=== PATIENT | female | born 1955 | race African-American/Black ===

== ENCOUNTER 2019-06-27 18:17 | Inpatient (IN) ==
[2019-06-27 19:11] LABS: Basophils % 0.3 % (0.0-0.8); Hematocrit 41.5 VOL% (35.7-47.0); Hemoglobin 13.8 GM/DL (12.0-16.0); Immature Granulocytes % 0.4 %; Immature Granulocytes Absolute 0.03 #; Lymphocytes # 1.3 10*3/uL (1.4-4.0); Lymphocytes % 17.9 % (21.3-54.2); Mean Corpuscular HGB Conc 33.3 GM/DL (32-36); Mean Corpuscular Volume 86.6 FL (87-102); Mean Platelet Volume 11.8 FL (9.6-12.0); Monocytes % 7.3 % (1.7-12.7); Neutrophils % 74.1 % (38.7-73.9); Platelet Count 166 T/CUMM (130-400); Red Blood Count 4.79 MC/CUMM (3.8-5.5); Red Cell Distribution Width 12.1 % (9.3-17.3); White Blood Count 7.4 T/CUMM (4-12)
[2019-06-27 19:35] LABS: Albumin 3.4 G/DL (3.4-5.0); Bilirubin,Total 0.8 MG/DL (0.2-1.0); Calcium 9.2 MG/DL (8.5-10.1); Osmolality,Calculated 269.9 MOS/KG (273-304); Total Protein 8.4 G/DL (6.4-8.3)
[2019-06-27] MEDS ORDERED: DEXTROSE 50% 25 GM/50 ML VIAL IV PRN (21:19)
[2019-06-27] MEDS ORDERED: GLUCAGON 1 MG VIAL IM PRN (21:19)
[2019-06-27] MEDS ORDERED: DEXTROSE 50% 25 GM/50 ML SYRINGE IV PRN (21:19)
[2019-06-27] MEDS ORDERED: AZITHROMYCIN INJ 500 MG in SODIUM CHLORIDE 0.9% 250 ML IV SCH (23:00)
[2019-06-27] MEDS: ENOXAPARIN 40 MG/0.4 ML SYRINGE SUBCUT SCH (23:50)
[2019-06-27] MEDS: SODIUM CHLORIDE 0.9% 1,000 ML IV SCH (23:50)
[2019-06-27] MEDS: HYDROXYCHLOROQUINE 200 MG TABLET PO SCH (23:50)
[2019-06-28] MEDS: cefTRIAXone 1,000 MG in SYRINGE 1 EACH IV SCH ×2 (00:01→22:00)
[2019-06-28] MEDS ORDERED: POTASSIUM CHLORIDE 20 MEQ TABLET PO ONE (00:15)
[2019-06-28] MEDS: INSULIN REGULAR 100 UNIT/ML SUBCUT SCH ×5 (00:30→22:00)
[2019-06-28] MEDS: ONDANSETRON 4 MG/2 ML VIAL IV PRN (03:21)
[2019-06-28] MEDS ORDERED: DEXTROSE 10% 250 ML BAG IV PRN (07:00)
[2019-06-28 07:51] LABS: Basophils % 0.3 % (0.0-0.8); Hematocrit 38.9 VOL% (35.7-47.0); Hemoglobin 12.6 GM/DL (12.0-16.0); Immature Granulocytes Absolute 0.07 #; Lymphocytes # 1.3 10*3/uL (1.4-4.0); Lymphocytes % 18.1 % (21.3-54.2); Mean Corpuscular HGB Conc 32.4 GM/DL (32-36); Mean Corpuscular Volume 87.4 FL (87-102); Monocytes % 6.2 % (1.7-12.7); Neutrophils % 74.4 % (38.7-73.9); Platelet Count 164 T/CUMM (130-400); Red Blood Count 4.45 MC/CUMM (3.8-5.5); Red Cell Distribution Width 11.9 % (9.3-17.3); White Blood Count 7.1 T/CUMM (4-12)
[2019-06-28 08:12] LABS: Band Neutrophils 1 % (0-10); Hypochromasia 1+; Lymphocytes 9 % (20-55); Microcytosis 1+; Platelet Estimate Adequate; Segmented Neutrophils 81 % (50-85); Total Cells Counted 100
[2019-06-28 08:48] LABS: Albumin 2.9 G/DL (3.4-5.0); Bilirubin,Total 0.7 MG/DL (0.2-1.0); Calcium 8.7 MG/DL (8.5-10.1); Osmolality,Calculated 273.5 MOS/KG (273-304); Total Protein 7.5 G/DL (6.4-8.3)
[2019-06-28] MEDS ORDERED: PANTOPRAZOLE 40 MG TABLET PO SCH (09:00)
[2019-06-28] MEDS: ZINC SULFATE 220 MG CAPSULE PO SCH (09:28)
[2019-06-28] MEDS: HYDROXYCHLOROQUINE 200 MG TABLET PO SCH ×2 (09:28→22:00)
[2019-06-28] MEDS: SODIUM CHLORIDE 0.9% 1,000 ML IV SCH (10:48)
[2019-06-28] MEDS: ACETAMINOPHEN 325 MG TABLET PO PRN ×2 (13:10→20:20)
[2019-06-28] MEDS: ENOXAPARIN 40 MG/0.4 ML SYRINGE SUBCUT SCH (22:00)
[2019-06-29] MEDS: ALBUTEROL INHALER 18 GM INH SCH ×4 (00:15→18:03)
[2019-06-29] MEDS: ACETAMINOPHEN 325 MG TABLET PO PRN ×5 (00:15→20:56)
[2019-06-29] MEDS: SODIUM CHLORIDE 0.9% 1,000 ML IV SCH ×2 (02:10→17:45)
[2019-06-29] MEDS: INSULIN REGULAR 100 UNIT/ML SUBCUT SCH ×4 (09:38→21:27)
[2019-06-29] MEDS: HYDROXYCHLOROQUINE 200 MG TABLET PO SCH ×2 (09:38→20:55)
[2019-06-29] MEDS: ONDANSETRON 4 MG/2 ML VIAL IV PRN (09:39)
[2019-06-29 10:18] LABS: Basophils % 0.3 % (0.0-0.8); Hematocrit 37.7 VOL% (35.7-47.0); Hemoglobin 12.1 GM/DL (12.0-16.0); Immature Granulocytes % 0.7 %; Immature Granulocytes Absolute 0.06 #; Lymphocytes # 1.1 10*3/uL (1.4-4.0); Lymphocytes % 11.7 % (21.3-54.2); Mean Corpuscular HGB Conc 32.1 GM/DL (32-36); Mean Platelet Volume 12.2 FL (9.6-12.0); Monocytes % 4.8 % (1.7-12.7); Neutrophils % 82.5 % (38.7-73.9); Platelet Count 171 T/CUMM (130-400); Red Blood Count 4.19 MC/CUMM (3.8-5.5); Red Cell Distribution Width 12.2 % (9.3-17.3)
[2019-06-29 10:34] LABS: Osmolality,Calculated 271.2 MOS/KG (273-304)
[2019-06-29 10:41] LABS: Band Neutrophils 4 % (0-10); Lymphocytes 12 % (20-55); Segmented Neutrophils 74 % (50-85); Total Cells Counted 100
[2019-06-29 10:42] LABS: Hypochromasia 1+; Microcytosis 1+; Platelet Estimate Adequate
[2019-06-29] MEDS ORDERED: POTASSIUM CHLORIDE RIDER 10 MEQ in PREMIX 1 EACH IV PRN ×2 (10:44→10:47)
[2019-06-29] MEDS: POTASSIUM CHLORIDE 20 MEQ TABLET PO PRN ×4 (14:00→20:56)
[2019-06-29] MEDS: INSULIN GLARGINE 100 UNIT/ML SUBCUT SCH (17:45)
[2019-06-29] MEDS: amLODIPine 10 MG TABLET PO SCH (17:45)
[2019-06-29] MEDS: sitaGLIPtin 100 MG TABLET PO SCH (17:45)
[2019-06-29] MEDS: COLESEVELAM 625 MG TABLET PO SCH (20:55)
[2019-06-29] MEDS: cefTRIAXone 1,000 MG in SYRINGE 1 EACH IV SCH (20:55)
[2019-06-29] MEDS: ENOXAPARIN 40 MG/0.4 ML SYRINGE SUBCUT SCH (20:55)
[2019-06-29] MEDS ORDERED: AZITHROMYCIN 250 MG TABLET PO SCH (21:00)
[2019-06-30] MEDS: ALBUTEROL INHALER 18 GM INH SCH ×4 (00:38→20:42)
[2019-06-30 05:32] LABS: Calcium 8.7 MG/DL (8.5-10.1)
[2019-06-30] MEDS: SODIUM CHLORIDE 0.9% 1,000 ML IV SCH (07:09)
[2019-06-30] MEDS: ACETAMINOPHEN 325 MG TABLET PO PRN ×2 (07:09→20:24)
[2019-06-30] MEDS: sitaGLIPtin 100 MG TABLET PO SCH (09:27)
[2019-06-30] MEDS: INSULIN GLARGINE 100 UNIT/ML SUBCUT SCH (09:28)
[2019-06-30] MEDS: PANTOPRAZOLE 40 MG TABLET PO SCH (09:28)
[2019-06-30] MEDS: HYDROXYCHLOROQUINE 200 MG TABLET PO SCH ×2 (09:28→20:43)
[2019-06-30] MEDS: amLODIPine 10 MG TABLET PO SCH (09:28)
[2019-06-30] MEDS: ZINC SULFATE 220 MG CAPSULE PO SCH (09:28)
[2019-06-30] MEDS: COLESEVELAM 625 MG TABLET PO SCH ×2 (09:28→20:43)
[2019-06-30] MEDS: INSULIN REGULAR 100 UNIT/ML SUBCUT SCH ×4 (09:30→20:43)
[2019-06-30] MEDS: cefTRIAXone 1,000 MG in SYRINGE 1 EACH IV SCH (20:42)
[2019-06-30] MEDS: ENOXAPARIN 40 MG/0.4 ML SYRINGE SUBCUT SCH (20:45)
[2019-07-01] MEDS: ALBUTEROL INHALER 18 GM INH SCH ×4 (00:45→20:35)
[2019-07-01] MEDS: ACETAMINOPHEN 325 MG TABLET PO PRN ×2 (04:40→20:31)
[2019-07-01 05:16] LABS: Calcium 9.1 MG/DL (8.5-10.1)
[2019-07-01 05:23] LABS: Basophils % 0.2 % (0.0-0.8); Eosinophils % 0.2 % (0.00-10.9); Hematocrit 39.6 VOL% (35.7-47.0); Hemoglobin 12.7 GM/DL (12.0-16.0); Immature Granulocytes % 1.1 %; Immature Granulocytes Absolute 0.09 #; Lymphocytes # 1.4 10*3/uL (1.4-4.0); Lymphocytes % 17.5 % (21.3-54.2); Mean Corpuscular HGB Conc 32.1 GM/DL (32-36); Mean Corpuscular Volume 89.2 FL (87-102); Mean Platelet Volume 12.1 FL (9.6-12.0); Monocytes % 5.2 % (1.7-12.7); Neutrophils % 75.8 % (38.7-73.9); Platelet Count 262 T/CUMM (130-400); Red Blood Count 4.44 MC/CUMM (3.8-5.5); Red Cell Distribution Width 12.3 % (9.3-17.3); White Blood Count 8.2 T/CUMM (4-12)
[2019-07-01] MEDS ORDERED: SODIUM CHLORIDE 0.9% 1,000 ML IV PRN (07:54)
[2019-07-01] MEDS: INSULIN GLARGINE 100 UNIT/ML SUBCUT SCH (09:15)
[2019-07-01] MEDS: PANTOPRAZOLE 40 MG TABLET PO SCH (09:15)
[2019-07-01] MEDS: sitaGLIPtin 100 MG TABLET PO SCH (09:15)
[2019-07-01] MEDS: HYDROXYCHLOROQUINE 200 MG TABLET PO SCH ×2 (09:15→20:31)
[2019-07-01] MEDS: amLODIPine 10 MG TABLET PO SCH (09:15)
[2019-07-01] MEDS: COLESEVELAM 625 MG TABLET PO SCH ×2 (09:15→20:31)
[2019-07-01] MEDS: INSULIN REGULAR 100 UNIT/ML SUBCUT SCH ×4 (10:10→20:35)
[2019-07-01] MEDS: ONDANSETRON 4 MG/2 ML VIAL IV PRN ×2 (15:10→20:31)
[2019-07-01] MEDS ORDERED: ALUM/MAG/SIMETH/LIDO VISC 1:1 30 ML BOTTLE PO ONE ×2 (15:21)
[2019-07-01] MEDS: cefTRIAXone 1,000 MG in SYRINGE 1 EACH IV SCH (20:31)
[2019-07-01] MEDS: ENOXAPARIN 40 MG/0.4 ML SYRINGE SUBCUT SCH (20:34)
[2019-07-02] MEDS: ALBUTEROL INHALER 18 GM INH SCH ×4 (01:39→18:48)
[2019-07-02 02:18] LABS: Basophils % 0.3 % (0.0-0.8); Eosinophils % 0.4 % (0.00-10.9); Hematocrit 36.4 VOL% (35.7-47.0); Hemoglobin 11.8 GM/DL (12.0-16.0); Immature Granulocytes Absolute 0.11 #; Lymphocytes # 1.6 10*3/uL (1.4-4.0); Lymphocytes % 15.2 % (21.3-54.2); Mean Corpuscular HGB Conc 32.4 GM/DL (32-36); Mean Corpuscular Volume 88.3 FL (87-102); Mean Platelet Volume 11.5 FL (9.6-12.0); Monocytes % 6.1 % (1.7-12.7); Platelet Count 294 T/CUMM (130-400); Red Blood Count 4.12 MC/CUMM (3.8-5.5); Red Cell Distribution Width 12.1 % (9.3-17.3); White Blood Count 10.8 T/CUMM (4-12)
[2019-07-02 02:37] LABS: Calcium 9.2 MG/DL (8.5-10.1); Osmolality,Calculated 267.4 MOS/KG (273-304)
[2019-07-02] MEDS: ACETAMINOPHEN 325 MG TABLET PO PRN ×3 (04:43→14:10)
[2019-07-02] MEDS: POTASSIUM CHLORIDE 20 MEQ TABLET PO PRN ×2 (04:43→08:59)
[2019-07-02] MEDS: INSULIN REGULAR 100 UNIT/ML SUBCUT SCH ×4 (08:59→20:17)
[2019-07-02] MEDS: sitaGLIPtin 100 MG TABLET PO SCH (08:59)
[2019-07-02] MEDS: INSULIN GLARGINE 100 UNIT/ML SUBCUT SCH (08:59)
[2019-07-02] MEDS: COLESEVELAM 625 MG TABLET PO SCH ×2 (08:59→20:17)
[2019-07-02] MEDS: PANTOPRAZOLE 40 MG TABLET PO SCH (08:59)
[2019-07-02] MEDS: amLODIPine 10 MG TABLET PO SCH (08:59)
[2019-07-02] MEDS: ZINC SULFATE 220 MG CAPSULE PO SCH (08:59)
[2019-07-02] MEDS: HYDROXYCHLOROQUINE 200 MG TABLET PO SCH (08:59)
[2019-07-02] MEDS ORDERED: TOCILIZUMAB 400 MG in SODIUM CHLORIDE 0.9% 100 ML IV ONE (09:17)
[2019-07-02 09:20] LABS: ABG Base Excess 2.3 MMOL/L (-2.5-2.5); ABG HCO3 26.2 MMOL/L (20-26); ABG Oxygen Saturation 82.7 % (95-100); ABG PCO2 34.8 MM HG (35-48); ABG PH 7.474 (7.35-7.45); ABG PO2 48.1 MM HG (80-95); ABG TCO2 22.7 MMOL/L (23-27)
[2019-07-02 15:42] LABS: Apearance,Urine CLEAR (Clear); Bilirubin,Urine Negative (Negative); Blood, Urine Negative (Negative); Glucose,Urine (UA) Negative (Negative); Ketones,Urine 20 mg/dL (Negative); Mucus,Urine Moderate /LPF (Occasional); Nitrite,Urine Negative (Negative); Protein,Urine 30 MG/DL; RBC,Urine 1 /HPF (0-4); Urine Color Amber (Yellow); Urine Specific Gravity 1.025 (1.001-1.035); Urine Urobilinogen < 2.0 EU/DL (0.2-1.0); WBC,Urine 3 /HPF (0-6)
[2019-07-02] MEDS: methylPREDNISolone SOD SUC 125 MG/2 ML VIAL IV SCH (17:38)
[2019-07-02] MEDS: cefTRIAXone 1,000 MG in SYRINGE 1 EACH IV SCH (20:17)
[2019-07-02] MEDS: ENOXAPARIN 40 MG/0.4 ML SYRINGE SUBCUT SCH (20:17)
[2019-07-02] MEDS: ZALEPLON 5 MG CAPSULE PO PRN (20:18)
[2019-07-02] MEDS ORDERED: ALUMINUM/MAGNES/SIMETH MAX STR 30 ML UDCUP PO PRN (23:30)
[2019-07-03] MEDS: ALBUTEROL INHALER 18 GM INH SCH ×4 (01:14→18:19)
[2019-07-03] MEDS: methylPREDNISolone SOD SUC 125 MG/2 ML VIAL IV SCH ×3 (01:14→17:47)
[2019-07-03] MEDS: INSULIN GLARGINE 100 UNIT/ML SUBCUT SCH (08:45)
[2019-07-03] MEDS: INSULIN REGULAR 100 UNIT/ML SUBCUT SCH ×4 (08:45→20:09)
[2019-07-03] MEDS: PANTOPRAZOLE 40 MG TABLET PO SCH (08:45)
[2019-07-03] MEDS: sitaGLIPtin 100 MG TABLET PO SCH (08:45)
[2019-07-03] MEDS: COLESEVELAM 625 MG TABLET PO SCH ×2 (08:45→20:09)
[2019-07-03] MEDS: amLODIPine 10 MG TABLET PO SCH (08:45)
[2019-07-03] MEDS: ALPRAZolam 0.25 MG TABLET PO PRN ×2 (11:15→20:10)
[2019-07-03] MEDS: FUROSEMIDE 40 MG/4 ML VIAL IV SCH ×3 (14:00→20:09)
[2019-07-03] MEDS: ZALEPLON 5 MG CAPSULE PO PRN (20:09)
[2019-07-03] MEDS: cefTRIAXone 1,000 MG in SYRINGE 1 EACH IV SCH (20:09)
[2019-07-03] MEDS: ENOXAPARIN 40 MG/0.4 ML SYRINGE SUBCUT SCH (20:09)
[2019-07-04] MEDS: ALBUTEROL INHALER 18 GM INH SCH ×4 (00:54→21:08)
[2019-07-04] MEDS: methylPREDNISolone SOD SUC 125 MG/2 ML VIAL IV SCH ×2 (00:54→09:16)
[2019-07-04 07:23] LABS: Basophils % 0.2 % (0.0-0.8); Hemoglobin 12.4 GM/DL (12.0-16.0); Immature Granulocytes % 1.7 %; Immature Granulocytes Absolute 0.29 #; Lymphocytes # 1.1 10*3/uL (1.4-4.0); Lymphocytes % 6.4 % (21.3-54.2); Mean Corpuscular HGB Conc 32.6 GM/DL (32-36); Mean Corpuscular Volume 87.4 FL (87-102); Mean Platelet Volume 11.5 FL (9.6-12.0); Monocytes % 5.2 % (1.7-12.7); Neutrophils % 86.5 % (38.7-73.9); Red Blood Count 4.35 MC/CUMM (3.8-5.5)
[2019-07-04 07:27] LABS: Platelet Count 413 T/CUMM (130-400)
[2019-07-04 07:34] LABS: Calcium 9.4 MG/DL (8.5-10.1); Osmolality,Calculated 284.4 MOS/KG (273-304)
[2019-07-04 07:47] LABS: Anisocytosis 2+; Hypochromasia Slight; Platelet Estimate Normal; Polychromasia Slight
[2019-07-04] MEDS: COLESEVELAM 625 MG TABLET PO SCH ×2 (09:15→21:09)
[2019-07-04] MEDS: sitaGLIPtin 100 MG TABLET PO SCH (09:16)
[2019-07-04] MEDS: INSULIN GLARGINE 100 UNIT/ML SUBCUT SCH (09:18)
[2019-07-04] MEDS: INSULIN REGULAR 100 UNIT/ML SUBCUT SCH ×4 (09:18→21:12)
[2019-07-04] MEDS: PANTOPRAZOLE 40 MG TABLET PO SCH (09:19)
[2019-07-04] MEDS ORDERED: FUROSEMIDE 40 MG/4 ML VIAL IV ONE (15:09)
[2019-07-04] MEDS: amLODIPine 10 MG TABLET PO SCH (15:14)
[2019-07-04] MEDS: NYSTATIN 500,000 UNIT/5 ML UDCUP SWISH/SWAL SCH ×3 (15:24→21:09)
[2019-07-04] MEDS: SODIUM CHLORIDE 0.9% 1,000 ML IV SCH (21:08)
[2019-07-04] MEDS: ENOXAPARIN 40 MG/0.4 ML SYRINGE SUBCUT SCH (21:09)
[2019-07-04] MEDS: cefTRIAXone 1,000 MG in SYRINGE 1 EACH IV SCH (21:12)
[2019-07-04] MEDS: ZALEPLON 5 MG CAPSULE PO PRN (21:25)
[2019-07-04] MEDS: ALPRAZolam 0.25 MG TABLET PO PRN (21:25)
[2019-07-04] MEDS: ACETAMINOPHEN 325 MG TABLET PO PRN (21:26)
[2019-07-05] MEDS: ALBUTEROL INHALER 18 GM INH SCH ×4 (00:41→21:01)
[2019-07-05 04:22] LABS: ABG Base Excess 7.8 MMOL/L (-2.5-2.5); ABG HCO3 31.4 MMOL/L (20-26); ABG Oxygen Saturation 90.7 % (95-100); ABG PCO2 44.3 MM HG (35-48); ABG PH 7.473 (7.35-7.45); ABG PO2 61.7 MM HG (80-95); ABG TCO2 28.3 MMOL/L (23-27); Allen Test Positive; Pt O2 Delivery Device Other
[2019-07-05] MEDS: SODIUM CHLORIDE 0.9% 1,000 ML IV SCH ×2 (07:20→17:20)
[2019-07-05 07:24] LABS: Basophils % 0.3 % (0.0-0.8); Eosinophils % 0.3 % (0.00-10.9); Hematocrit 40.7 VOL% (35.7-47.0); Hemoglobin 13.3 GM/DL (12.0-16.0); Immature Granulocytes % 2.5 %; Immature Granulocytes Absolute 0.39 #; Lymphocytes # 1.6 10*3/uL (1.4-4.0); Lymphocytes % 10.3 % (21.3-54.2); Mean Corpuscular HGB Conc 32.7 GM/DL (32-36); Mean Corpuscular Volume 88.1 FL (87-102); Mean Platelet Volume 11.4 FL (9.6-12.0); Monocytes % 6.5 % (1.7-12.7); Neutrophils % 80.1 % (38.7-73.9); Platelet Count 437 T/CUMM (130-400); Red Blood Count 4.62 MC/CUMM (3.8-5.5); Red Cell Distribution Width 12.1 % (9.3-17.3); White Blood Count 15.3 T/CUMM (4-12)
[2019-07-05 07:37] LABS: Osmolality,Calculated 280.5 MOS/KG (273-304)
[2019-07-05] MEDS: INSULIN REGULAR 100 UNIT/ML SUBCUT SCH ×4 (07:39→21:01)
[2019-07-05] MEDS: POTASSIUM CHLORIDE 20 MEQ TABLET PO PRN ×2 (08:38→12:39)
[2019-07-05] MEDS: INSULIN GLARGINE 100 UNIT/ML SUBCUT SCH (08:38)
[2019-07-05] MEDS: sitaGLIPtin 100 MG TABLET PO SCH (08:38)
[2019-07-05] MEDS: COLESEVELAM 625 MG TABLET PO SCH ×2 (08:38→21:02)
[2019-07-05] MEDS: amLODIPine 10 MG TABLET PO SCH (08:38)
[2019-07-05] MEDS: NYSTATIN 500,000 UNIT/5 ML UDCUP SWISH/SWAL SCH ×2 (08:38→12:39)
[2019-07-05] MEDS: PANTOPRAZOLE 40 MG TABLET PO SCH (08:45)
[2019-07-05 16:38] LABS: HIV Antigen/Antibody Result Nonreactive (Nonreactive); Hepatitis B Surface Ag Quant 0.72 Index; Hepatitis B Surface Ag Result Negative (Negative); Hepatitis C Virus Ab Quant 0.11 Index; Hepatitis C Virus Ab Result Negative (Negative)
[2019-07-05] MEDS: ALPRAZolam 0.25 MG TABLET PO PRN (21:02)
[2019-07-06] MEDS: ALBUTEROL INHALER 18 GM INH SCH ×4 (02:05→23:10)
[2019-07-06] MEDS: SODIUM CHLORIDE 0.9% 1,000 ML IV SCH (03:20)
[2019-07-06] MEDS: ACETAMINOPHEN 325 MG TABLET PO PRN ×2 (05:10→11:48)
[2019-07-06 07:05] LABS: Basophils % 0.1 % (0.0-0.8); Eosinophils # 0.1 10*3/uL (0.0-0.87); Eosinophils % 0.7 % (0.00-10.9); Hematocrit 37.3 VOL% (35.7-47.0); Hemoglobin 11.7 GM/DL (12.0-16.0); Immature Granulocytes % 1.6 %; Immature Granulocytes Absolute 0.22 #; Lymphocytes # 1.4 10*3/uL (1.4-4.0); Lymphocytes % 10.4 % (21.3-54.2); Mean Corpuscular HGB Conc 31.4 GM/DL (32-36); Mean Corpuscular Volume 90.3 FL (87-102); Mean Platelet Volume 10.8 FL (9.6-12.0); Monocytes % 5.3 % (1.7-12.7); Neutrophils % 81.9 % (38.7-73.9); Platelet Count 340 T/CUMM (130-400); Red Blood Count 4.13 MC/CUMM (3.8-5.5); Red Cell Distribution Width 12.7 % (9.3-17.3); White Blood Count 13.5 T/CUMM (4-12)
[2019-07-06 07:28] LABS: Band Neutrophils 3 % (0-10); Lymphocytes 14 % (20-55); Metamyelocytes 1 %; Platelet Estimate Normal; Segmented Neutrophils 74 % (50-85); Total Cells Counted 100
[2019-07-06 07:29] LABS: Anisocytosis 1+; Macrocytosis Slight
[2019-07-06] MEDS: INSULIN REGULAR 100 UNIT/ML SUBCUT SCH ×4 (08:42→20:50)
[2019-07-06] MEDS: amLODIPine 10 MG TABLET PO SCH (08:43)
[2019-07-06] MEDS: INSULIN GLARGINE 100 UNIT/ML SUBCUT SCH (08:43)
[2019-07-06] MEDS: PANTOPRAZOLE 40 MG TABLET PO SCH (08:43)
[2019-07-06] MEDS: ALPRAZolam 0.25 MG TABLET PO PRN (08:43)
[2019-07-06] MEDS: sitaGLIPtin 100 MG TABLET PO SCH (08:43)
[2019-07-06] MEDS: COLESEVELAM 625 MG TABLET PO SCH ×2 (08:43→22:03)
[2019-07-06] MEDS: PHENOL 1.4% THROAT SPRAY 177 ML BOTTLE PO PRN (09:00)
[2019-07-06 10:11] LABS: Calcium 8.8 MG/DL (8.5-10.1); Osmolality,Calculated 281.4 MOS/KG (273-304)
[2019-07-06] MEDS ORDERED: fentaNYL 25 MCG/HR PATCH TRANSDERM SCH (13:00)
[2019-07-07] MEDS: ALBUTEROL INHALER 18 GM INH SCH ×4 (03:25→21:40)
[2019-07-07 03:47] LABS: Basophils % 0.2 % (0.0-0.8); Eosinophils # 0.1 10*3/uL (0.0-0.87); Eosinophils % 0.5 % (0.00-10.9); Hematocrit 36.6 VOL% (35.7-47.0); Hemoglobin 11.6 GM/DL (12.0-16.0); Immature Granulocytes % 1.2 %; Immature Granulocytes Absolute 0.21 #; Lymphocytes # 1.6 10*3/uL (1.4-4.0); Lymphocytes % 9.1 % (21.3-54.2); Mean Corpuscular HGB Conc 31.7 GM/DL (32-36); Mean Corpuscular Volume 89.9 FL (87-102); Mean Platelet Volume 10.6 FL (9.6-12.0); Monocytes % 4.4 % (1.7-12.7); Neutrophils % 84.6 % (38.7-73.9); Platelet Count 295 T/CUMM (130-400); Red Blood Count 4.07 MC/CUMM (3.8-5.5); Red Cell Distribution Width 12.8 % (9.3-17.3)
[2019-07-07 04:29] LABS: Calcium 8.5 MG/DL (8.5-10.1); Osmolality,Calculated 273.8 MOS/KG (273-304)
[2019-07-07 04:35] LABS: ABG Base Excess 0.7 MMOL/L (-2.5-2.5); ABG HCO3 23.9 MMOL/L (20-26); ABG Oxygen Saturation 89.1 % (95-100); ABG PCO2 33.4 MM HG (35-48); ABG PH 7.472 (7.35-7.45); ABG PO2 56.7 MM HG (80-95); ABG TCO2 24.9 MMOL/L (23-27)
[2019-07-07] MEDS: POTASSIUM CHLORIDE 20 MEQ TABLET PO PRN ×3 (06:18→21:40)
[2019-07-07] MEDS: INSULIN REGULAR 100 UNIT/ML SUBCUT SCH ×4 (07:39→21:40)
[2019-07-07] MEDS: COLESEVELAM 625 MG TABLET PO SCH ×2 (08:56→21:40)
[2019-07-07] MEDS: sitaGLIPtin 100 MG TABLET PO SCH (08:56)
[2019-07-07] MEDS: PANTOPRAZOLE 40 MG TABLET PO SCH (08:56)
[2019-07-07] MEDS: amLODIPine 10 MG TABLET PO SCH (08:56)
[2019-07-07] MEDS: INSULIN GLARGINE 100 UNIT/ML SUBCUT SCH (09:53)
[2019-07-07 11:41] LABS: Apearance,Urine CLEAR (Clear); Bacteria,Urine Occasional /HPF (Few); Bilirubin,Urine Negative (Negative); Blood, Urine Negative (Negative); Glucose,Urine (UA) Negative (Negative); Ketones,Urine 80 mg/dL (Negative); Mucus,Urine Many /LPF (Occasional); Nitrite,Urine Negative (Negative); Protein,Urine 30 MG/DL; RBC,Urine 9 /HPF (0-4); Squamous Epithelial Cell,Urine Occasional /HPF (0-10); Urine Color Amber (Yellow); Urine Specific Gravity 1.026 (1.001-1.035); Urine Urobilinogen < 2.0 EU/DL (0.2-1.0); WBC,Urine 4 /HPF (0-6)
[2019-07-07] MEDS: PIPERACILLIN/TAZOBACTAM 3,375 MG in SODIUM CHLORIDE 0.9% 100 ML IV SCH ×2 (12:50→21:40)
[2019-07-07] MEDS ORDERED: FUROSEMIDE 40 MG/4 ML VIAL IV ONE (14:07)
[2019-07-07] MEDS: ENOXAPARIN 40 MG/0.4 ML SYRINGE SUBCUT SCH (15:00)
[2019-07-07] MEDS: ALPRAZolam 0.25 MG TABLET PO PRN (21:40)
[2019-07-07] MEDS: ACETAMINOPHEN 325 MG TABLET PO PRN (23:23)
[2019-07-07] MEDS: PHENOL 1.4% THROAT SPRAY 177 ML BOTTLE PO PRN (23:26)
[2019-07-08] MEDS: ALBUTEROL INHALER 18 GM INH SCH ×4 (01:20→21:40)
[2019-07-08] MEDS: PIPERACILLIN/TAZOBACTAM 3,375 MG in SODIUM CHLORIDE 0.9% 100 ML IV SCH ×3 (06:43→20:43)
[2019-07-08] MEDS: COLESEVELAM 625 MG TABLET PO SCH ×2 (09:15→20:40)
[2019-07-08] MEDS: PANTOPRAZOLE 40 MG TABLET PO SCH (09:15)
[2019-07-08] MEDS: INSULIN GLARGINE 100 UNIT/ML SUBCUT SCH (09:15)
[2019-07-08] MEDS: sitaGLIPtin 100 MG TABLET PO SCH (09:15)
[2019-07-08] MEDS: INSULIN REGULAR 100 UNIT/ML SUBCUT SCH ×4 (09:15→23:08)
[2019-07-08] MEDS: amLODIPine 10 MG TABLET PO SCH (09:15)
[2019-07-08 09:57] LABS: Basophils % 0.2 % (0.0-0.8); Eosinophils # 0.1 10*3/uL (0.0-0.87); Hematocrit 37.5 VOL% (35.7-47.0); Hemoglobin 11.6 GM/DL (12.0-16.0); Immature Granulocytes % 1.1 %; Immature Granulocytes Absolute 0.15 #; Lymphocytes % 7.8 % (21.3-54.2); Mean Corpuscular HGB Conc 30.9 GM/DL (32-36); Mean Corpuscular Volume 92.4 FL (87-102); Mean Platelet Volume 10.5 FL (9.6-12.0); Neutrophils % 83.9 % (38.7-73.9); Platelet Count 298 T/CUMM (130-400); Red Blood Count 4.06 MC/CUMM (3.8-5.5); Red Cell Distribution Width 12.7 % (9.3-17.3); White Blood Count 13.4 T/CUMM (4-12)
[2019-07-08 11:00] LABS: Calcium 8.5 MG/DL (8.5-10.1); Osmolality,Calculated 283.4 MOS/KG (273-304)
[2019-07-08] MEDS: VANCOMYCIN INJ 1,250 MG in SODIUM CHLORIDE 0.9% 250 ML IV SCH ×2 (11:00→23:08)
[2019-07-08] MEDS: ENOXAPARIN 40 MG/0.4 ML SYRINGE SUBCUT SCH (15:03)
[2019-07-08] MEDS: ACETAMINOPHEN 325 MG TABLET PO PRN ×2 (15:15→23:09)
[2019-07-08] MEDS: ALPRAZolam 0.25 MG TABLET PO PRN (20:40)
[2019-07-08] MEDS: PHENOL 1.4% THROAT SPRAY 177 ML BOTTLE PO PRN (23:09)
[2019-07-09] MEDS: fentaNYL 50 MCG/HR PATCH TRANSDERM SCH (00:45)
[2019-07-09] MEDS: ALBUTEROL INHALER 18 GM INH SCH ×4 (00:45→23:01)
[2019-07-09 04:02] LABS: Basophils % 0.3 % (0.0-0.8); Eosinophils # 0.2 10*3/uL (0.0-0.87); Eosinophils % 1.3 % (0.00-10.9); Hematocrit 35.6 VOL% (35.7-47.0); Hemoglobin 11.2 GM/DL (12.0-16.0); Immature Granulocytes Absolute 0.12 #; Lymphocytes # 1.3 10*3/uL (1.4-4.0); Lymphocytes % 10.1 % (21.3-54.2); Mean Corpuscular HGB Conc 31.5 GM/DL (32-36); Mean Corpuscular Volume 89.9 FL (87-102); Mean Platelet Volume 11.1 FL (9.6-12.0); Monocytes % 6.9 % (1.7-12.7); Neutrophils % 80.4 % (38.7-73.9); Platelet Count 327 T/CUMM (130-400); Red Blood Count 3.96 MC/CUMM (3.8-5.5); Red Cell Distribution Width 12.4 % (9.3-17.3); White Blood Count 12.3 T/CUMM (4-12)
[2019-07-09 04:13] LABS: Calcium 8.5 MG/DL (8.5-10.1); Osmolality,Calculated 273.8 MOS/KG (273-304)
[2019-07-09] MEDS: PIPERACILLIN/TAZOBACTAM 3,375 MG in SODIUM CHLORIDE 0.9% 100 ML IV SCH ×3 (05:05→21:10)
[2019-07-09] MEDS: sitaGLIPtin 100 MG TABLET PO SCH (08:45)
[2019-07-09] MEDS: amLODIPine 10 MG TABLET PO SCH (08:45)
[2019-07-09] MEDS: COLESEVELAM 625 MG TABLET PO SCH ×2 (08:45→21:10)
[2019-07-09] MEDS: PANTOPRAZOLE 40 MG TABLET PO SCH (08:45)
[2019-07-09] MEDS: INSULIN REGULAR 100 UNIT/ML SUBCUT SCH ×4 (09:08→23:01)
[2019-07-09] MEDS: INSULIN GLARGINE 100 UNIT/ML SUBCUT SCH (09:10)
[2019-07-09] MEDS: POTASSIUM CHLORIDE 20 MEQ TABLET PO PRN ×2 (12:48→12:54)
[2019-07-09] MEDS: VANCOMYCIN INJ 1,250 MG in SODIUM CHLORIDE 0.9% 250 ML IV SCH ×2 (12:48→23:30)
[2019-07-09] MEDS: POTASSIUM CHLORIDE 20 MEQ TABLET PO SCH ×2 (13:52→17:18)
[2019-07-09] MEDS: ENOXAPARIN 40 MG/0.4 ML SYRINGE SUBCUT SCH (16:11)
[2019-07-09] MEDS: ACETAMINOPHEN 325 MG TABLET PO PRN (21:10)
[2019-07-10] MEDS: ALBUTEROL INHALER 18 GM INH SCH ×4 (01:00→21:32)
[2019-07-10 04:07] LABS: ABG Base Excess 4.9 MMOL/L (-2.5-2.5); ABG HCO3 29.7 MMOL/L (20-26); ABG Oxygen Saturation 93.3 % (95-100); ABG PCO2 44.7 MM HG (35-48); ABG PO2 69.5 MM HG (80-95); ABG TCO2 31.1 MMOL/L (23-27)
[2019-07-10 04:53] LABS: Basophils % 0.4 % (0.0-0.8); Eosinophils # 0.1 10*3/uL (0.0-0.87); Eosinophils % 0.8 % (0.00-10.9); Hematocrit 34.7 VOL% (35.7-47.0); Hemoglobin 10.7 GM/DL (12.0-16.0); Immature Granulocytes % 1.1 %; Immature Granulocytes Absolute 0.12 #; Lymphocytes # 1.2 10*3/uL (1.4-4.0); Mean Corpuscular HGB Conc 30.8 GM/DL (32-36); Mean Corpuscular Volume 91.6 FL (87-102); Mean Platelet Volume 10.9 FL (9.6-12.0); Monocytes % 8.5 % (1.7-12.7); Neutrophils % 78.2 % (38.7-73.9); Platelet Count 309 T/CUMM (130-400); Red Blood Count 3.79 MC/CUMM (3.8-5.5); Red Cell Distribution Width 12.5 % (9.3-17.3); White Blood Count 11.1 T/CUMM (4-12)
[2019-07-10] MEDS: PIPERACILLIN/TAZOBACTAM 3,375 MG in SODIUM CHLORIDE 0.9% 100 ML IV SCH ×3 (05:04→21:32)
[2019-07-10 05:22] LABS: Calcium 8.9 MG/DL (8.5-10.1); Osmolality,Calculated 278.4 MOS/KG (273-304)
[2019-07-10] MEDS: INSULIN REGULAR 100 UNIT/ML SUBCUT SCH ×4 (08:32→21:32)
[2019-07-10] MEDS: PANTOPRAZOLE 40 MG TABLET PO SCH (08:39)
[2019-07-10] MEDS: amLODIPine 10 MG TABLET PO SCH (08:39)
[2019-07-10] MEDS: COLESEVELAM 625 MG TABLET PO SCH ×2 (08:39→21:32)
[2019-07-10] MEDS: sitaGLIPtin 100 MG TABLET PO SCH (08:39)
[2019-07-10] MEDS: INSULIN GLARGINE 100 UNIT/ML SUBCUT SCH (08:39)
[2019-07-10] MEDS: VANCOMYCIN INJ 1,250 MG in SODIUM CHLORIDE 0.9% 250 ML IV SCH (12:02)
[2019-07-10] MEDS: ENOXAPARIN 40 MG/0.4 ML SYRINGE SUBCUT SCH (17:27)
[2019-07-11] MEDS: VANCOMYCIN INJ 1,250 MG in SODIUM CHLORIDE 0.9% 250 ML IV SCH ×2 (00:56→12:50)
[2019-07-11] MEDS: ALBUTEROL INHALER 18 GM INH SCH ×4 (00:57→18:28)
[2019-07-11 04:36] LABS: Allen Test Positive; Pt O2 Delivery Device Other
[2019-07-11 04:40] LABS: ABG Base Excess 4.1 MMOL/L (-2.5-2.5); ABG HCO3 27.7 MMOL/L (20-26); ABG Oxygen Saturation 77.1 % (95-100); ABG PH 7.448 (7.35-7.45); ABG TCO2 25.7 MMOL/L (23-27)
[2019-07-11] MEDS: PIPERACILLIN/TAZOBACTAM 3,375 MG in SODIUM CHLORIDE 0.9% 100 ML IV SCH ×3 (06:09→22:54)
[2019-07-11] MEDS: amLODIPine 10 MG TABLET PO SCH (09:45)
[2019-07-11] MEDS: sitaGLIPtin 100 MG TABLET PO SCH (09:45)
[2019-07-11] MEDS: COLESEVELAM 625 MG TABLET PO SCH ×2 (09:45→20:45)
[2019-07-11] MEDS: PANTOPRAZOLE 40 MG TABLET PO SCH (09:45)
[2019-07-11] MEDS: fentaNYL 50 MCG/HR PATCH TRANSDERM SCH (09:45)
[2019-07-11] MEDS: INSULIN GLARGINE 100 UNIT/ML SUBCUT SCH (10:00)
[2019-07-11] MEDS: INSULIN REGULAR 100 UNIT/ML SUBCUT SCH ×4 (10:26→20:45)
[2019-07-11] MEDS: methylPREDNISolone SOD SUC 40 MG/1 ML VIAL IV SCH ×2 (15:18→20:45)
[2019-07-11] MEDS: ENOXAPARIN 40 MG/0.4 ML SYRINGE SUBCUT SCH (15:50)
[2019-07-11] MEDS: ACETAMINOPHEN 325 MG TABLET PO PRN (20:44)
[2019-07-12] MEDS: ALBUTEROL INHALER 18 GM INH SCH ×4 (00:52→18:23)
[2019-07-12] MEDS: methylPREDNISolone SOD SUC 40 MG/1 ML VIAL IV SCH ×4 (03:06→21:03)
[2019-07-12 05:46] LABS: Basophils % 0.3 % (0.0-0.8); Hematocrit 32.1 VOL% (35.7-47.0); Hemoglobin 10.2 GM/DL (12.0-16.0); Immature Granulocytes Absolute 0.11 #; Lymphocytes # 1.1 10*3/uL (1.4-4.0); Lymphocytes % 10.2 % (21.3-54.2); Mean Corpuscular HGB Conc 31.8 GM/DL (32-36); Mean Corpuscular Volume 89.2 FL (87-102); Mean Platelet Volume 10.9 FL (9.6-12.0); Monocytes % 2.9 % (1.7-12.7); Neutrophils % 85.6 % (38.7-73.9); Platelet Count 299 T/CUMM (130-400); Red Cell Distribution Width 12.9 % (9.3-17.3); White Blood Count 10.8 T/CUMM (4-12)
[2019-07-12 06:09] LABS: Eosinophils 1 % (0-10); Lymphocytes 15 % (20-55); Segmented Neutrophils 81 % (50-85); Total Cells Counted 100
[2019-07-12 06:10] LABS: Hypochromasia Slight; Platelet Estimate Adequate
[2019-07-12 06:17] LABS: Osmolality,Calculated 285.5 MOS/KG (273-304)
[2019-07-12] MEDS: POTASSIUM CHLORIDE 20 MEQ TABLET PO PRN (08:13)
[2019-07-12] MEDS: COLESEVELAM 625 MG TABLET PO SCH ×2 (08:13→21:03)
[2019-07-12] MEDS: amLODIPine 10 MG TABLET PO SCH (08:13)
[2019-07-12] MEDS: PANTOPRAZOLE 40 MG TABLET PO SCH (08:14)
[2019-07-12] MEDS: INSULIN GLARGINE 100 UNIT/ML SUBCUT SCH (08:14)
[2019-07-12] MEDS: INSULIN REGULAR 100 UNIT/ML SUBCUT SCH ×4 (08:14→21:03)
[2019-07-12] MEDS ORDERED: INSULIN GLARGINE 100 UNIT/ML SUBCUT SCH (12:18)
[2019-07-12] MEDS: ENOXAPARIN 40 MG/0.4 ML SYRINGE SUBCUT SCH ×2 (12:40→21:03)
[2019-07-12] MEDS: PIPERACILLIN/TAZOBACTAM 3,375 MG in SODIUM CHLORIDE 0.9% 100 ML IV SCH ×2 (12:53→21:03)
[2019-07-12] MEDS: ACETAMINOPHEN 325 MG TABLET PO PRN (21:04)
[2019-07-13] MEDS: ACETAMINOPHEN 325 MG TABLET PO PRN (00:10)
[2019-07-13] MEDS: ALBUTEROL INHALER 18 GM INH SCH ×4 (00:10→18:10)
[2019-07-13] MEDS: methylPREDNISolone SOD SUC 40 MG/1 ML VIAL IV SCH ×4 (03:14→21:45)
[2019-07-13] MEDS: PIPERACILLIN/TAZOBACTAM 3,375 MG in SODIUM CHLORIDE 0.9% 100 ML IV SCH (05:18)
[2019-07-13 06:11] LABS: Basophils % 0.1 % (0.0-0.8); Hemoglobin 9.2 GM/DL (12.0-16.0); Immature Granulocytes % 0.9 %; Immature Granulocytes Absolute 0.12 #; Lymphocytes # 1.2 10*3/uL (1.4-4.0); Lymphocytes % 9.1 % (21.3-54.2); Mean Corpuscular HGB Conc 31.7 GM/DL (32-36); Mean Corpuscular Volume 89.2 FL (87-102); Mean Platelet Volume 11.4 FL (9.6-12.0); Monocytes % 6.3 % (1.7-12.7); Neutrophils % 83.6 % (38.7-73.9); Platelet Count 302 T/CUMM (130-400); Red Blood Count 3.25 MC/CUMM (3.8-5.5); Red Cell Distribution Width 12.6 % (9.3-17.3); White Blood Count 13.2 T/CUMM (4-12)
[2019-07-13 06:29] LABS: Osmolality,Calculated 284.7 MOS/KG (273-304)
[2019-07-13 06:33] LABS: Hypochromasia 1+; Microcytosis Slight; Platelet Estimate Adequate
[2019-07-13] MEDS: PANTOPRAZOLE 40 MG TABLET PO SCH (08:24)
[2019-07-13] MEDS: amLODIPine 10 MG TABLET PO SCH (08:24)
[2019-07-13] MEDS: COLESEVELAM 625 MG TABLET PO SCH ×2 (08:24→20:30)
[2019-07-13] MEDS: INSULIN GLARGINE 100 UNIT/ML SUBCUT SCH (08:24)
[2019-07-13] MEDS: POTASSIUM CHLORIDE 20 MEQ TABLET PO PRN ×3 (08:24→12:05)
[2019-07-13] MEDS: ENOXAPARIN 40 MG/0.4 ML SYRINGE SUBCUT SCH ×2 (08:24→20:30)
[2019-07-13] MEDS: INSULIN REGULAR 100 UNIT/ML SUBCUT SCH ×4 (08:24→20:30)
[2019-07-13] MEDS: FUROSEMIDE 40 MG/4 ML VIAL IV SCH (12:05)
[2019-07-14] MEDS: methylPREDNISolone SOD SUC 40 MG/1 ML VIAL IV SCH ×4 (01:30→20:45)
[2019-07-14] MEDS: ALBUTEROL INHALER 18 GM INH SCH ×4 (01:30→20:56)
[2019-07-14 05:03] LABS: Basophils % 0.1 % (0.0-0.8); Eosinophils # 0.1 10*3/uL (0.0-0.87); Eosinophils % 0.4 % (0.00-10.9); Hematocrit 28.6 VOL% (35.7-47.0); Hemoglobin 8.7 GM/DL (12.0-16.0); Immature Granulocytes % 0.6 %; Immature Granulocytes Absolute 0.09 #; Lymphocytes # 1.8 10*3/uL (1.4-4.0); Mean Corpuscular HGB Conc 30.4 GM/DL (32-36); Mean Corpuscular Volume 92.3 FL (87-102); Mean Platelet Volume 11.3 FL (9.6-12.0); Monocytes % 8.4 % (1.7-12.7); Neutrophils % 77.5 % (38.7-73.9); Platelet Count 310 T/CUMM (130-400); Red Cell Distribution Width 12.9 % (9.3-17.3); White Blood Count 13.9 T/CUMM (4-12)
[2019-07-14 05:16] LABS: Calcium 8.9 MG/DL (8.5-10.1); Osmolality,Calculated 281.7 MOS/KG (273-304)
[2019-07-14 05:50] LABS: Lymphocytes 13 % (20-55); Segmented Neutrophils 77 % (50-85); Total Cells Counted 100
[2019-07-14 05:51] LABS: Hypochromasia 1+; Microcytosis Slight; Ovalocytes Slight; Platelet Estimate Adequate
[2019-07-14] MEDS: INSULIN REGULAR 100 UNIT/ML SUBCUT SCH ×4 (08:49→20:56)
[2019-07-14] MEDS: COLESEVELAM 625 MG TABLET PO SCH ×2 (08:50→20:56)
[2019-07-14] MEDS: INSULIN GLARGINE 100 UNIT/ML SUBCUT SCH (08:50)
[2019-07-14] MEDS: PANTOPRAZOLE 40 MG TABLET PO SCH (08:51)
[2019-07-14] MEDS: FUROSEMIDE 40 MG/4 ML VIAL IV SCH (08:51)
[2019-07-14] MEDS: amLODIPine 10 MG TABLET PO SCH (08:51)
[2019-07-14] MEDS: ENOXAPARIN 40 MG/0.4 ML SYRINGE SUBCUT SCH ×2 (08:54→20:56)
[2019-07-14] MEDS ORDERED: INSULIN GLARGINE 100 UNIT/ML SUBCUT SCH (13:20)
[2019-07-15] MEDS: ALBUTEROL INHALER 18 GM INH SCH ×2 (02:54→07:30)
[2019-07-15 04:04] LABS: Basophils % 0.1 % (0.0-0.8); Eosinophils % 0.1 % (0.00-10.9); Hemoglobin 9.8 GM/DL (12.0-16.0); Immature Granulocytes % 0.9 %; Immature Granulocytes Absolute 0.09 #; Lymphocytes % 10.1 % (21.3-54.2); Mean Corpuscular HGB Conc 30.6 GM/DL (32-36); Mean Corpuscular Volume 91.7 FL (87-102); Mean Platelet Volume 12.4 FL (9.6-12.0); Monocytes % 6.6 % (1.7-12.7); Neutrophils % 82.2 % (38.7-73.9); Platelet Count 258 T/CUMM (130-400); Red Blood Count 3.49 MC/CUMM (3.8-5.5); Red Cell Distribution Width 13.2 % (9.3-17.3); White Blood Count 10.3 T/CUMM (4-12)
[2019-07-15] MEDS: methylPREDNISolone SOD SUC 40 MG/1 ML VIAL IV SCH ×2 (09:00→21:00)
[2019-07-15] MEDS: ENOXAPARIN 40 MG/0.4 ML SYRINGE SUBCUT SCH ×2 (09:00→20:54)
[2019-07-15] MEDS: INSULIN REGULAR 100 UNIT/ML SUBCUT SCH ×4 (09:00→20:58)
[2019-07-15] MEDS: amLODIPine 10 MG TABLET PO SCH (09:00)
[2019-07-15] MEDS: COLESEVELAM 625 MG TABLET PO SCH ×2 (09:00→20:54)
[2019-07-15] MEDS: PANTOPRAZOLE 40 MG TABLET PO SCH (09:00)
[2019-07-15] MEDS: FUROSEMIDE 40 MG/4 ML VIAL IV SCH (09:00)
[2019-07-15 09:39] LABS: Calcium 9.1 MG/DL (8.5-10.1); Osmolality,Calculated 283.7 MOS/KG (273-304)
[2019-07-15] MEDS ORDERED: ENOXAPARIN 40 MG/0.4 ML SYRINGE SUBCUT SCH (16:00)
[2019-07-16 07:02] LABS: Basophils % 0.1 % (0.0-0.8); Eosinophils # 0.1 10*3/uL (0.0-0.87); Eosinophils % 0.4 % (0.00-10.9); Hematocrit 31.8 VOL% (35.7-47.0); Immature Granulocytes % 1.1 %; Immature Granulocytes Absolute 0.13 #; Lymphocytes # 1.2 10*3/uL (1.4-4.0); Lymphocytes % 10.4 % (21.3-54.2); Mean Corpuscular HGB Conc 31.4 GM/DL (32-36); Mean Corpuscular Volume 89.6 FL (87-102); Mean Platelet Volume 11.8 FL (9.6-12.0); Monocytes % 5.8 % (1.7-12.7); Neutrophils % 82.2 % (38.7-73.9); Platelet Count 298 T/CUMM (130-400); Red Blood Count 3.55 MC/CUMM (3.8-5.5); Red Cell Distribution Width 13.2 % (9.3-17.3); White Blood Count 11.9 T/CUMM (4-12)
[2019-07-16 07:27] LABS: Calcium 8.5 MG/DL (8.5-10.1); Osmolality,Calculated 286.5 MOS/KG (273-304)
[2019-07-16] MEDS: INSULIN REGULAR 100 UNIT/ML SUBCUT SCH ×4 (08:25→21:40)
[2019-07-16] MEDS: amLODIPine 10 MG TABLET PO SCH (10:42)
[2019-07-16] MEDS: INSULIN GLARGINE 100 UNIT/ML SUBCUT SCH (10:43)
[2019-07-16] MEDS: PANTOPRAZOLE 40 MG TABLET PO SCH (10:43)
[2019-07-16] MEDS: FUROSEMIDE 40 MG/4 ML VIAL IV SCH (10:44)
[2019-07-16] MEDS: ENOXAPARIN 40 MG/0.4 ML SYRINGE SUBCUT SCH ×2 (10:44→21:40)
[2019-07-16] MEDS: methylPREDNISolone SOD SUC 40 MG/1 ML VIAL IV SCH ×2 (10:45→21:40)
[2019-07-16] MEDS: COLESEVELAM 625 MG TABLET PO SCH ×2 (10:45→21:40)
[2019-07-17 06:31] LABS: Basophils % 0.1 % (0.0-0.8); Eosinophils % 0.3 % (0.00-10.9); Hematocrit 31.4 VOL% (35.7-47.0); Immature Granulocytes % 1.1 %; Mean Corpuscular HGB Conc 31.8 GM/DL (32-36); Mean Corpuscular Volume 89.2 FL (87-102); Mean Platelet Volume 11.3 FL (9.6-12.0); Monocytes % 3.6 % (1.7-12.7); Neutrophils % 83.9 % (38.7-73.9); Platelet Count 282 T/CUMM (130-400); Red Blood Count 3.52 MC/CUMM (3.8-5.5); Red Cell Distribution Width 13.5 % (9.3-17.3); White Blood Count 9.4 T/CUMM (4-12)
[2019-07-17 06:48] LABS: Calcium 8.8 MG/DL (8.5-10.1); Osmolality,Calculated 282.7 MOS/KG (273-304)
[2019-07-17] MEDS: methylPREDNISolone SOD SUC 40 MG/1 ML VIAL IV SCH ×2 (11:35→21:45)
[2019-07-17] MEDS: COLESEVELAM 625 MG TABLET PO SCH ×2 (11:40→21:45)
[2019-07-17] MEDS: INSULIN REGULAR 100 UNIT/ML SUBCUT SCH ×4 (12:57→21:45)
[2019-07-17] MEDS: INSULIN GLARGINE 100 UNIT/ML SUBCUT SCH (12:58)
[2019-07-17] MEDS: ENOXAPARIN 40 MG/0.4 ML SYRINGE SUBCUT SCH ×2 (12:59→21:45)
[2019-07-17] MEDS: FUROSEMIDE 40 MG/4 ML VIAL IV SCH (12:59)
[2019-07-17] MEDS: amLODIPine 10 MG TABLET PO SCH (13:00)
[2019-07-17] MEDS: PANTOPRAZOLE 40 MG TABLET PO SCH (13:00)
[2019-07-18 06:16] LABS: Basophils % 0.2 % (0.0-0.8); Eosinophils % 0.1 % (0.00-10.9); Hemoglobin 10.2 GM/DL (12.0-16.0); Immature Granulocytes % 1.5 %; Immature Granulocytes Absolute 0.15 #; Lymphocytes # 1.7 10*3/uL (1.4-4.0); Lymphocytes % 16.5 % (21.3-54.2); Mean Corpuscular HGB Conc 30.9 GM/DL (32-36); Mean Corpuscular Volume 90.9 FL (87-102); Mean Platelet Volume 11.3 FL (9.6-12.0); Monocytes % 4.4 % (1.7-12.7); Neutrophils % 77.3 % (38.7-73.9); Platelet Count 321 T/CUMM (130-400); Red Blood Count 3.63 MC/CUMM (3.8-5.5); Red Cell Distribution Width 13.5 % (9.3-17.3)
[2019-07-18 06:37] LABS: Calcium 9.4 MG/DL (8.5-10.1); Osmolality,Calculated 278.8 MOS/KG (273-304)
[2019-07-18] MEDS: INSULIN REGULAR 100 UNIT/ML SUBCUT SCH ×4 (09:20→21:34)
[2019-07-18] MEDS: ENOXAPARIN 40 MG/0.4 ML SYRINGE SUBCUT SCH ×2 (09:21→21:34)
[2019-07-18] MEDS: methylPREDNISolone SOD SUC 40 MG/1 ML VIAL IV SCH ×2 (09:21→21:34)
[2019-07-18] MEDS: PANTOPRAZOLE 40 MG TABLET PO SCH (09:21)
[2019-07-18] MEDS: amLODIPine 10 MG TABLET PO SCH (09:21)
[2019-07-18] MEDS: INSULIN GLARGINE 100 UNIT/ML SUBCUT SCH (09:21)
[2019-07-18] MEDS: COLESEVELAM 625 MG TABLET PO SCH ×2 (09:22→21:34)
[2019-07-18] MEDS: FUROSEMIDE 40 MG/4 ML VIAL IV SCH (12:40)
[2019-07-19 05:24] LABS: Basophils % 0.1 % (0.0-0.8); Eosinophils % 0.1 % (0.00-10.9); Hematocrit 32.3 VOL% (35.7-47.0); Hemoglobin 10.2 GM/DL (12.0-16.0); Immature Granulocytes % 1.7 %; Immature Granulocytes Absolute 0.17 #; Lymphocytes # 1.6 10*3/uL (1.4-4.0); Lymphocytes % 15.6 % (21.3-54.2); Mean Corpuscular HGB Conc 31.6 GM/DL (32-36); Mean Corpuscular Volume 90.2 FL (87-102); Mean Platelet Volume 11.3 FL (9.6-12.0); Monocytes % 6.6 % (1.7-12.7); Neutrophils % 75.9 % (38.7-73.9); Platelet Count 329 T/CUMM (130-400); Red Blood Count 3.58 MC/CUMM (3.8-5.5); Red Cell Distribution Width 13.7 % (9.3-17.3); White Blood Count 10.1 T/CUMM (4-12)
[2019-07-19 05:51] LABS: Calcium 8.8 MG/DL (8.5-10.1); Osmolality,Calculated 282.7 MOS/KG (273-304)
[2019-07-19 05:57] LABS: Ferritin 685.7 ng/ml (8-252)
[2019-07-19] MEDS ORDERED: POTASSIUM CHLORIDE 20 MEQ/15 ML UDCUP PER TUBE PRN (07:42)
[2019-07-19] MEDS: methylPREDNISolone SOD SUC 40 MG/1 ML VIAL IV SCH (09:38)
[2019-07-19] MEDS: FUROSEMIDE 40 MG/4 ML VIAL IV SCH (09:38)
[2019-07-19] MEDS: PANTOPRAZOLE 40 MG TABLET PO SCH (09:38)
[2019-07-19] MEDS: amLODIPine 10 MG TABLET PO SCH (09:38)
[2019-07-19] MEDS: ENOXAPARIN 40 MG/0.4 ML SYRINGE SUBCUT SCH (09:38)
[2019-07-19] MEDS: COLESEVELAM 625 MG TABLET PO SCH (09:39)
[2019-07-19] MEDS: INSULIN REGULAR 100 UNIT/ML SUBCUT SCH ×2 (09:51→12:36)
[2019-07-19] MEDS: INSULIN GLARGINE 100 UNIT/ML SUBCUT SCH (09:51)
[2019-07-19] MEDS ORDERED: POTASSIUM CHLORIDE 20 MEQ TABLET PO PRN (11:00)
[2019-07-19 12:09] VITALS: BP 115/54
[2019-07-20] MEDS ORDERED: methylPREDNISolone SOD SUC 40 MG/1 ML VIAL IV SCH (09:00)
== END 2019-07-19 16:25 | DRG 177 ==
LOC: N.ED 18:17 → N.EDINP 21:19 → SUATTDRO 21:19 → N.EDINP 22:19 → N.2W 22:30 → N.CC 06-30 07:37 → N.2W 07-15 23:49
PROVIDERS: ADMIT Internal Medicine; ATTEND Hospitalist